=== PATIENT | male | born 1980 | race Caucasian/White ===

== ENCOUNTER 2024-10-25 20:16 | Observation (INO) | payer OTHER, SELFPAY ==
[2024-10-25] VITALS (11 sets, daily range): BP systolic 130–175; BP diastolic 62–118; PULSE 102–127; BMI 30.8; BMI 30.2
[2024-10-25 14:07] LABS: % Basophils 0.7 % (0-2); % Eosinophils 0.7 % (0-6); % Immature Granulocytes 0.4 % (0-0.5); % Lymphocytes 23.3 % (20.5-51.1); % Monocytes 5.5 % (1.7-9.3); % Neutrophils 69.4 % (42.2-75.2); Absolute Basophils 0.1 10^3/uL (0-0.2); Absolute Eosinophils 0.1 10^3/uL (0-0.7); Absolute Lymphocytes 2.3 10^3/uL (1.2-3.4); Absolute Monocytes 0.5 10^3/uL (0.1-0.6); Absolute Neutrophils 6.7 10^3/uL (1.4-6.5); Hematocrit 44.4 % (39.0-52.0); Hemoglobin 15.5 g/dL (13.0-18.0); Mean Corp Hgb Conc. 34.9 g/dL (33.0-37.0); Mean Corpuscular Hgb 28.9 pg (27.0-31.0); Mean Corpuscular Volume 82.8 fL (80.0-94.0); Mean Platelet Volume 10.1 fL (7.4-10.4); Nucleated Red Blood Cells % 0 % (-); Platelet Count 248 10^3/uL (130-400); Red Blood Cell Count 5.36 10^6/uL (4.70-6.10); Red Cell Dist. Width 12.8 % (11.5-14.5); White Blood Cell Count 9.7 10^3/uL (4.8-10.8)
[2024-10-25 14:19] LABS: ALT (SGPT) 40 U/L (0-50); AST (SGOT) 29 U/L (17-59); Albumin 4.9 g/dl (3.5-5.0); Alkaline Phosphatase 67 U/L (38-126); Blood Urea Nitrogen 11 mg/dl (9-20); Calcium 9.7 mg/dl (8.4-10.2); Carbon Dioxide 23 mmol/L (22-30); Chloride 101 mmol/L (98-107); Glucose 146 mg/dl (70-99); Potassium 3.3 mmol/L (3.5-5.1); Sodium 138 mmol/L (135-145); Total Bilirubin 0.8 mg/dl (0.2-1.3); Total Protein 7.3 g/dl (6.3-8.2); eGFR > 60.00
[2024-10-25 14:29] LABS: Troponin I < 0.012 ng/ml
--- NOTE | 2024-10-25 15:16 | ED.GENMED ---
History of Present Illness
<DARRELL Moya - Last Filed: 10/25/24 19:05>
General
Chief Complaint: Dizziness
Source: patient
Exam Limitations: none
Time Seen by Provider: 10/25/24 15:16
History of Present Illness
History of Present Illness:
Patient is a 44-year-old male who presents to the ER for evaluation. Patient reports around 12 PM he stood up to make lunch and felt very lightheaded and dizzy and fell acute going to pass out. He sat down and had a little episode of room spinning
sensation call EMS.. Patient denies any associated chest pain or shortness of breath. Patient currently feels mildly dizzy here but denies any room spinning.
Patient denies any recent illness fever chills. Patient does report he was painting earlier today but was fine when he was painting. He was in a well ventilated open area while he was pain.
Patient reports he is on Lexapro for anxiety but denies any other medications. He does not feel anxious and was not anxious when symptoms occur.
Patient still feels dizzy lightheaded but not vertiginous and does feel flushed have the headache.
Review of Systems
<DARRELL Moya - Last Filed: 10/25/24 19:05>
Review of Systems
Allergies reviewed?: Yes
All Other Systems: ROS reviewed and negative except as documented in HPI and ROS
Constitutional: Reports no symptoms; Denies fever, fatigue or chills
EENT: Reports no symptoms
Respiratory: Reports no symptoms
Cardiac: Denies chest pain or diaphoresis
ABD/GI: Reports no symptoms
: Reports no symptoms
Musculoskeletal: Reports no symptoms
Neurological: Reports dizzy and headache
Endocrine: Reports no symptoms
Psychiatric: Reports no symptoms
Phy Exam
<DARRELL Moya - Last Filed: 10/25/24 19:05>
General Physical Exam
General Presentation: no apparent distress
General age: appears stated age
General Skin: warm and dry
General Habitus: normal
General Mental: alert
General Hydration: appears well hydrated
ENT Exam
ENT Exam: EOMI, neck supple and other (No nystagmus b/l )
Cardiovascular Exam
Cardiovascular Exam: tachycardia
Pulmonary Exam
Pulmonary Exam: lungs clear and no respiratory distress
Neurological Exam
Neurological Exam: alert, oriented x3, no motor deficits and no sensory deficits
Musculoskeletal Exam
Musculoskeletal Exam: full ROM
Skin Exam
Skin Exam: normal color and warm/dry
Psychiatric Exam
Psychiatric Exam: normal mood/affect
Course
<DARRELL Moya - Last Filed: 10/25/24 19:05>
Orders/Labs/Results
Orders:
Orders
10/25/24 13:20
ECG [Electrocardiogram (*1)] Urgent
Reason for Study: Vertigo / Dizzy
10/25/24 13:21
EKG- Treatment ONCE
10/25/24 13:49
Complete Blood Count/With Diff Urgent
Comprehensive Metabolic Panel Urgent
Free T4 Urgent
TSH Reflex To Free T4 Urgent
Comment: ADD ON
Troponin I Urgent
10/25/24 15:29
Add On- LAB Urgent
Tests Added?: tsh w/ reflexive t4
10/25/24 15:30
0.9% Sodium Chloride 1000 ml [Nss] 1,000 ml IV BOLUS
10/25/24 15:43
COVID-19 Antigen Urgent
Source: Nasal Swab
Influenza A+B Rapid Molecular Urgent
OLINDA Source: Nasal Swab
Specimen Description:
10/25/24 17:55
Orthostatic VS- Treatment ONCE
10/25/24 17:56
Electrocardiogram (*1) Stat
Reason for Study: Other
Other Reason for Exam: chest pain
CT Head W/o Iv Contrast Urgent
Comment:
Reason For Exam: headache
EKG- Treatment ONCE
Acetaminophen [Tylenol] 1,000 mg PO NOW STA
10/25/24 18:48
Labetalol HCl [Trandate] 10 mg IV NOW STA
Abnormal Lab Results
10/25/24
13:49
Absolute Neuts (auto) 6.7 H 10^3/uL
(1.4-6.5)
Potassium 3.3 L mmol/L
(3.5-5.1)
Glucose 146 H mg/dl
(70-99)
TSH (Reflex) 5.52 H uIU/ml
(0.47-4.68)
10/25/24 13:49
10/25/24 13:49
Vital Signs
Initial and Last Documented VS:
Initial Vital Signs
Temp Pulse Resp BP Pulse Ox
97.7 F 102 16 175/91 100
10/25/24 13:24 10/25/24 13:24 10/25/24 13:24 10/25/24 13:24 10/25/24 13:24
Last Documented Vital Signs
Temp Pulse Resp BP Pulse Ox
97.7 F 115 17 175/118 100
10/25/24 13:24 10/25/24 18:38 10/25/24 18:38 10/25/24 18:09 10/25/24 13:24
Active Directory Administrator consulted with Physician
Active Directory Administrator consulted with physician?: Yes
Name of Physician Consulted: Robin
<Moira Kelly MD - Last Filed: 10/25/24 18:50>
Orders/Labs/Results
Orders:
Orders
10/25/24 13:20
ECG [Electrocardiogram (*1)] Urgent
Reason for Study: Vertigo / Dizzy
10/25/24 13:21
EKG- Treatment ONCE
10/25/24 13:49
Complete Blood Count/With Diff Urgent
Comprehensive Metabolic Panel Urgent
Free T4 Urgent
TSH Reflex To Free T4 Urgent
Comment: ADD ON
Troponin I Urgent
10/25/24 15:29
Add On- LAB Urgent
Tests Added?: tsh w/ reflexive t4
10/25/24 15:30
0.9% Sodium Chloride 1000 ml [Nss] 1,000 ml IV BOLUS
10/25/24 15:43
COVID-19 Antigen Urgent
Source: Nasal Swab
Influenza A+B Rapid Molecular Urgent
OLINDA Source: Nasal Swab
Specimen Description:
10/25/24 17:55
Orthostatic VS- Treatment ONCE
10/25/24 17:56
Electrocardiogram (*1) Stat
Reason for Study: Other
Other Reason for Exam: chest pain
CT Head W/o Iv Contrast Urgent
Comment:
Reason For Exam: headache
EKG- Treatment ONCE
Acetaminophen [Tylenol] 1,000 mg PO NOW STA
10/25/24 18:48
Labetalol HCl [Trandate] 10 mg IV NOW STA
Abnormal Lab Results
10/25/24
13:49
Absolute Neuts (auto) 6.7 H 10^3/uL
(1.4-6.5)
Potassium 3.3 L mmol/L
(3.5-5.1)
Glucose 146 H mg/dl
(70-99)
TSH (Reflex) 5.52 H uIU/ml
(0.47-4.68)
10/25/24 13:49
10/25/24 13:49
Vital Signs
Initial and Last Documented VS:
Initial Vital Signs
Temp Pulse Resp BP Pulse Ox
97.7 F 102 16 175/91 100
10/25/24 13:24 10/25/24 13:24 10/25/24 13:24 10/25/24 13:24 10/25/24 13:24
Last Documented Vital Signs
Temp Pulse Resp BP Pulse Ox
97.7 F 115 17 175/118 100
10/25/24 13:24 10/25/24 18:38 10/25/24 18:38 10/25/24 18:09 10/25/24 13:24
<DARRELL Moya - Last Filed: 10/25/24 19:05>
MDM/Problems Addressed
Differential Diagnosis Includes:
Not limited to near syncope dehydration hypertensive urgency
MDM/Problems Addressed:
Patient is a 44-year-old male who presents with dizziness lightheadedness. This occurred around 12 PM when he stood up. He had very brief episode of vertigo however since then has felt dizzy and lightheaded. He does feel flushed and has a
headache. Patient presents tachycardic and was as high as the 120s he has been persistently tachycardic. He has been given fluids. He had a normal neurologic Ronald and no nystagmus. Patient presented with hypertension her blood pressure has
significantly increased here and he complains of headache. CT was done and negative. Patient's labs were reviewed which were unremarkable white count; his TSH is elevated but his free T4 is normal his negative COVID-negative flu.
Patient evaluated by Dr. Kelly as patient is been persistently tachycardic and persistently hypertensive. With complaints of headache and symptoms of dizziness with hypertension IV labetalol ordered and will monitor for concern for hypertensive
urgency
<DARRELL Moya - Last Filed: 10/25/24 19:05>
*Radiology
Radiology exam reviewed: radiology read reviewed
*Pulse Oximetry
Patient hypoxic: no
*EKG
Interpreted by ED Provider?: Yes
Heart Rate: 98
Rate: normal
Rhythm: sinus
Ischemia: no ischemia
*Critical Care Note
Total Time (30-74mins, 75-104mins- exclusive of procedures): Not Applicable
ED Attending Note
<DARRELL Moya - Last Filed: 10/25/24 19:05>
-
Portions of this chart may have been created with voice recognition software.� Occasional wrong word or��sound alike� substitutions may have occurred due to the inherent limitations of voice recognition software.
<Moira Kelly MD - Last Filed: 10/25/24 18:50>
ED Attending Note
Patient seen and examined by attending physician: Yes
I performed the substantive portion of visit, reviewed & personally made and approve the management plan that is documented in note by myself or NAVJOT.: Yes
ED Attending Note:
Patient presents with sudden onset of nausea and dizziness. On exam patient is fully awake alert but appears flushed and uncomfortable. Patient is extremely hypertensive and tachycardic despite IV fluids. Patient reports he normally has a good
blood pressure and this is very unusual for him. Patient complains of a fairly severe headache which is unusual. I am concerned about hypertensive urgency and [id number] blood pressure
Discharge Plan
Departure
Patient Disposition: Admit
Date of Disposition: 10/25/24
Time of Disposition: 18:59
Admit to: Telemetry
Admit to doctor: hospitalist
Presentation/result/management discussed w/ accepting MD/DO: Hospitalist
Patient with high blood pressure during this ER visit?: Yes
Condition: Fair
Covid-19: Not Applicable
Discharge Problem:
Dizziness, Hypertension
Referrals:
Kavin Clemens DO [Family Provider] -
Interventions
Interventions:
*Risk Screen - Suicide Last Done: 10/25/24 13:24
*General Assessment Last Done: 10/25/24 13:24
*Neglect/Abuse Screening Last Done: 10/25/24 13:24
*ED COVID-19 Vaccine History Last Done: 10/25/24 18:40
ED- Neurological Assessment Last Done: 10/25/24 13:51
ED- Cardiac Assessment Last Done: 10/25/24 13:51
ED Swallowing Screen Last Done: 10/25/24 13:51
Discharge Date and Time
Print Language: SPANISH
[2024-10-25] MEDS: NSS 1000 IV (15:34)
[2024-10-25 16:19] LABS: COVID-19 Antigen Negative (Negative)
[2024-10-25 17:31] LABS: TSH Reflex To Free T4 5.52 uIU/ml (0.47-4.68)
[2024-10-25 18:10] LABS: Free T4 1.01 ng/dl (0.78-2.19)
[2024-10-25] MEDS: TYLENOL 1000 MG PO (18:12)
[2024-10-25] MEDS: TRANDATE 10 MG IV (19:10)
--- NOTE | 2024-10-25 19:34 | HPS.HSE ---
Family Physician
-
Family Physician: Kavin Clemens, DO
Chief Complaint
-
Dizziness
History of Present Illness
Patient is a 44 y/o male past medical history of severe hearing impairment with bilateral hearing aids, and anxiety who presents with dizziness. Patient reports he was in his usual states of health this morning. He spend the morning just hanging
out and when he went to get up for lunch he was had significant dizziness. He jermaine as though he may pass out and he called EMS. Patient reports some tinnitus initially but reports it has resolved. He denies any other changes in his hearing. He
reports significant headache. Upon EMS arrival his blood pressure was very elevated. He reports he had a physical about 2 months ago, and his blood pressure was normal at that time. He denies focal numbness, tingling or weakness.
Medical History
Past Medical History
Past Medical History: Reports Other
Additional Past Medical History:
Anxiety
Hearing Impairment
Nephrolithiasis
Past Surgical History: Reports Other
Additional Past Surgical History:
Appendectomy
Kidney Stone Removal
Social History
Tobacco: Non-smoker
Drug: None
Family History
Family History: Not pertinent
Allergies / Home Medications
Allergies reflects when Allergies were last updated in Scan.
Home Medications with original date entered in Scan
Allergy/Medication List:
Allergies
Allergy/AdvReac Type Severity Reaction Status Date / Time
No Known Allergies Allergy Verified 10/25/24 13:28
Home Medications
escitalopram oxalate 10 mg tablet 15 mg PO DAILY 10/25/24
Review of Systems
-
A 12 point ROS was completed and negative except as noted: Yes
Constitutional: Denies Fever or Chills
Respiratory: Denies Cough or Trouble Breathing
Cardiac: Denies Chest Pain or Palpitations
Physical Exam
Vital Signs
Vital Signs
Temp Pulse Resp BP Pulse Ox
97.7 F 96 17 160/89 100
10/25/24 13:24 10/25/24 19:10 10/25/24 18:38 10/25/24 19:10 10/25/24 13:24
Physical Exam
General: Comfortable and Conversant
HEENT: Anicteric, Moist mucous membranes, PERRLA (Slight horizontal nystagmus) and Hearing Impaired (Bilateral hearing aids in place)
Respiratory: Clear and Non Labored Respirations
Cardiac: S1/S2, Regular Rhythm and Tachycardia; No Murmur
GI: Soft and Non Tender
Rectal: Deferred by Provider
Musculoskeletal: No Clubbing, No Cyanosis and No Edema
Skin: Warm and Dry
Neuro: Awake, Alert, Oriented and Nonfocal/grossly intact
Psych: Calm
Laboratory Results
-
10/25/24 13:49
10/25/24 13:49
Laboratory Results
Total Bilirubin 0.8 mg/dl (0.2-1.3) 10/25/24 13:49
AST 29 U/L (17-59) 10/25/24 13:49
ALT 40 U/L (0-50) 10/25/24 13:49
Alkaline Phosphatase 67 U/L (38-126) 10/25/24 13:49
Troponin I < 0.012 ng/ml 10/25/24 13:49
Data Reviewed
-
CT Scan: Report Reviewed by me
Lab Data: Labs Reviewed by me
Impression/Plan
-
Dizziness, possibly BPPV vs Hypertensive Encephalopathy vs Acute Stroke
-Consult Neurology
-Check Brain MRI
-Consult PT/OT
-Continue Meclizine PRN
Hypertensive Urgency
-Patient reports normal blood pressure with PCP as few months
-Hold on starting standing medication
-Continue Labetalol prn
Generalized Anxiety Disorder
-Continue Lexapro
DVT proph: SCDs
Code Status: Full Code
[2024-10-25] MEDS: KCL 20 MEQ PO (20:21)
[2024-10-25] MEDS: ANTIVERT 25 MG PO (20:32)
[2024-10-25] MEDS: ZOFRAN 4 MG IV (20:33)
--- NOTE | 2024-10-25 20:37 | W.PN.UPDATE ---
Update Note
Progress Note Update
Patient seen in conjunction with DARRELL. I concur with the findings and physical. I agree with assessment and plan unless stated otherwise.
Briefly, this is a 44-year-old with past medical history significant for anxiety who presents to the emergency department for an episode of dizziness and hypertension at home.
Patient reports been in usual state of health. Her blood pressure measured 2 months ago at PMD office and it was normal. States his blood pressure is usually around 118 systolic with a heart rate in the 60s. Patient reports he had no symptoms and
woke up in usual state of health. Then around 11 AM suddenly had a dizzy episode which she described as a spinning sensation. He had nausea but no vomiting. He had a severe headache which she described as a pressure across all of his head. He
also reported having visual skewed scintillating scotoma type pattern (seeing stars). EMS was called. When EMS arrived the patient blood pressure was reported to be in the 200s systolic and he was tachycardic. He was given medication for nausea.
Patient reports that he has not had any dizziness since then.
On arrival in the ED he was afebrile, blood pressure was 175/90 with a pulse of 110. Was at 90% on room air. ECG shows normal sinus rhythm at a rate of [address] or T wave changes. Troponin was negative. CBC was completely normal.
Electrolytes notable for a potassium of 3.3 but otherwise normal. BUN/creatinine were normal. Viral panel was negative. He had a CT of the head which shows no acute abnormalities.
On exam the patient had no focal neurological deficits. On my exam there was no nystagmus but PA exam indicated a leftward gaze nystagmus. Patient currently reports still having a headache and nausea but denies having any dizziness.
Differential are migraine headache, BPPV, acute vestibular stroke. Suspect elevated BP is secondary and not primary etiology such as an hypertensive encephalopathy
- admit to telemetry observation
- keep SBP < 160, MAP < 120 with prn labetolol for now
- if persistent bp elevation, consider initiation of BP meds in am
- check lipid panel and a1c
- mri in am
- holding aspirin for now as no focal deficits and multiple differential
- antiemetics and antivert
- neurology consult
DVT PPX - SCDs
Code status - Full Code
[2024-10-26 03:03] VITALS: BP 132/70
[2024-10-26] MEDS: ZOFRAN 4 MG IV (03:38)
[2024-10-26] MEDS: OFIRMEV 100 IV (04:00)
--- NOTE | 2024-10-26 04:22 | PTCARENOTE ---
Pt admitted to unit. Able to walk to bed independently. A&Ox4. [place]. PERRLA 3. Moves all extremities equally and with good strength. Pt stated that he felt 'better' with a BANKS 12/19. Pt later c/o BANKS 02/18 with nausea. Contacted GRADUATE INTERN control clerk head. Provided Meds
for nausea and pain as ordered. No c/o dizziness or change in vision. Pt on RA RRR with no edema. Abd assessment benign. No open areas on skin noted with [place]. No s/s of distress assessed. Will continue to monitor.
[2024-10-26 07:21] LABS: Hematocrit 45.7 % (39.0-52.0); Mean Corpuscular Hgb 29.4 pg (27.0-31.0); Mean Corpuscular Volume 83.9 fL (80.0-94.0); Mean Platelet Volume 10.1 fL (7.4-10.4); Platelet Count 241 10^3/uL (130-400); Red Blood Cell Count 5.45 10^6/uL (4.70-6.10); Red Cell Dist. Width 13.3 % (11.5-14.5); White Blood Cell Count 8.1 10^3/uL (4.8-10.8)
[2024-10-26 07:50] VITALS: BP 143/81
[2024-10-26 08:05] LABS: Blood Urea Nitrogen 12 mg/dl (9-20); Calcium 9.3 mg/dl (8.4-10.2); Carbon Dioxide 21 mmol/L (22-30); Chloride 106 mmol/L (98-107); Estimated Creatinine Clearance > 125 ml/min; Glucose 107 mg/dl (70-99); HDL Cholesterol 42 mg/dl; LDL Cholesterol, Calculated 157 mg/dl; Potassium 4.3 mmol/L (3.5-5.1); Sodium 140 mmol/L (135-145); Total Cholesterol 237 mg/dl (50-199); Triglyceride 193 mg/dl (10-149); Very Low Density Lipoprotein 38 mg/dl (0-30); eGFR > 60.00
[2024-10-26 08:09] VITALS: BP 147/55; BP 147/75; BP 151/90; BP 151/91; PULSE 80; PULSE 91; O2SAT 98
--- NOTE | 2024-10-26 08:15 | PTOTSP ---
Patient independent with all bed mobility, transfers and ambulation. No episodes of dizziness and patient has been asymptomatic. No skilled PT needs. Reconsult if dizziness returns and if vestibular assessment is warranted.
[2024-10-26] MEDS: LEXAPRO 15 MG PO (08:16)
[2024-10-26 09:52] LABS: Glycohemoglobin (HgbA1c) 5.6 % (4.0-5.6)
[2024-10-26] MEDS: NORVASC 2.5 MG PO (10:00)
--- NOTE | 2024-10-26 10:03 | CM ---
Patient seen at bedside. Patient with [place] and hearing aides, reads lips. Patient states that he is aware of the OBS status and form signed and placed on chart. Patient for discharge today per physician. Patient states he will uber home. Patient
mother is contact lives in 2 story home with family supports. Patient has no needs for discharge and uses the [facility] in [place] and Dr. Munguia as his PCP. CM will continue to follow for discharge planning needs.
Plan; home with no needs anticipated
--- NOTE | 2024-10-26 11:12 | W.PN.HOSP.TC ---
Today's Communication/Plan
-
Monitor vital signs see plan
Blood pressure now improving, start amlodipine
Patient aware to follow-up closely with PCP next week and to monitor his blood pressure twice daily. He already has blood pressure machine at home
Currently without any dizziness, discussed with neurology. No need for MRI
Discharge today
Time of discharge 36 minutes
Assessment / Plan
Assessment / Plan
General: Comfortable and Conversant
HEENT: Anicteric, Moist mucous membranes, Hearing Impaired (Bilateral hearing aids in place)
Respiratory: Clear and Non Labored Respirations
Cardiac: S1/S2, Regular Rhythm and Tachycardia; No Murmur
GI: Soft and Non Tender
Musculoskeletal: No Edema
Neuro: Awake, Alert, Oriented and Nonfocal/grossly intact
Psych: Calm
Dizziness, suspect likely was secondary to hypertensive urgency
No prior history of hypertension however does run in family
Responded well to labetalol on admission. Started low-dose amlodipine. Patient is aware to follow-up closely with PCP outpatient and to monitor his blood pressure twice daily.
Discussed with neurology, no need for MRI
Hypertensive Urgency
-Patient reports normal blood pressure with PCP as few months
Started amlodipine. Currently patient without any symptoms and wants to go home.
-Continue Labetalol prn
Generalized Anxiety Disorder
-Continue Lexapro
Elevated TSH, normal free T4
Monitor
DVT proph: SCDs
Code Status: Full Code
Anticipated Discharge: Today
Subjective/Interval History
-
Date of Service: October 26, 2024
denies dizziness
Objective Data
-
Labs:
Laboratory Results
10/26/24
06:32
WBC 8.1
Hgb 16.0
Hct 45.7
Plt Count 241
Sodium 140
Potassium 4.3 D
Chloride 106
Carbon Dioxide 21 L
BUN 12
Creatinine 0.8
Glucose 107 H
Calcium 9.3
Vital Signs:
Vital Signs
Temp Pulse Resp BP Pulse Ox
97.6 F 73 16 143/81 98
10/26/24 07:50 10/26/24 10:00 10/26/24 07:50 10/26/24 10:00 10/26/24 11:05
I&O
10/25/24 10/26/24 10/27/24
06:59 06:59 06:59
Intake Total 340 / 340
Balance 340 / 340
--- NOTE | 2024-10-26 11:18 | W.DCSUMMARY ---
Discharge Summary
Discharge Data
Date of Admission: 10/25/24
Date of Discharge: 10/26/24
-
Pending Results: No
Hospital Course
44-year-old male with past medical history of generalized anxiety disorder came to the hospital with dizziness which was likely thought was secondary to hypertensive urgency. Patient blood pressure on admission was elevated. For his blood pressure
he was started on low-dose amlodipine. He was instructed to check his blood pressure twice daily on discharge and to follow-up closely with primary care provider for further medication titration. Over time his blood pressure continued to improve
and his dizziness and headache got better. I also discussed his case with neurology who did not see any need for MRI. Since patient symptoms improved, he was then discharged home with instructions to follow-up with all his physicians outpatient.
Discharge Plan
-
Patient Disposition: Home (Routine Discharge)
Discharge Diagnosis/Procedures: Dizziness
Hypertensive urgency
Diet: As tolerated
Activity: As tolerated
Driving Restrictions: As prior to admission
Bathing Restrictions: None
Activity Restrictions/Additional Instructions:
Please check your blood pressure twice daily and write those numbers down. Follow-up with your primary care provider early next week.
Referrals:
Kavin Clemens DO [Family Provider] - in less than 1 week
Prescriptions:
New
amlodipine 2.5 mg Tablet
2.5 mg PO DAILY Qty: 30 0RF
meclizine 25 mg Tablet
25 mg PO Q8HPRN PRN (Reason: dizziness) Qty: 15 0RF
Continued
escitalopram oxalate 10 mg Tablet
15 mg PO DAILY
Discharge Orders:
Discharge Patient (As Directed); Ordered 10/26/24
Ordered By: Marcello Gutierrez
Discharge Date and Time
Discharge Date/Time: 10/26/24 12:09
Print Language: AMHARIC
[2024-10-26 11:45] VITALS: BP 141/73
== END 2024-10-26 12:09 | disposition home or self-care (01) ==
LOC: 4 EAST ACU 20:16
PROVIDERS: Emergency Medicine; Nurse Practitioner; Physician Assistant Medical; ADMITTING PHYSICIAN Internal Medicine; ATTENDING PHYSICIAN Internal Medicine; EMERGENCY PHYSICIAN Emergency Medicine; FAMILY PHYSICIAN Family Medicine
DX: R42 Dizziness and giddiness (principal); I16.0 Hypertensive urgency; R00.0 Tachycardia, unspecified; R51.9 Headache, unspecified; R11.0 Nausea; R23.2 Flushing; F41.1 Generalized anxiety disorder; I10 Essential (primary) hypertension; R94.6 Abnormal results of thyroid function studies; H91.90 Unspecified hearing loss, unspecified ear; Z97.4 Presence of external hearing-aid; Z87.442 Personal history of urinary calculi; Z79.899 Other long term (current) drug therapy; Z90.49 Acquired absence of other specified parts of digestive tract; Z11.52 Encounter for screening for COVID-19
CPT/HCPCS: 70450; 80048; 80053; 80061; 83036; 84439; 84443; 84484; 85025; 85027; 87502; 87811; 93005; 96374; 97161; 97165; 99285; G0378